=== PATIENT | male | born 1945 | race Caucasian/White ===

== ENCOUNTER 2018-11-20 02:06 | Inpatient (IN) ==
[2018-11-20] MEDS ORDERED: MECLIZINE 25 MG TABLET PO STA (02:09)
[2018-11-20 02:24] LABS: Basophils % 0.7 % (0.0-0.8); Eosinophils # 0.1 10*3/uL (0.0-0.87); Eosinophils % 1.8 % (0.00-10.9); Hematocrit 39.5 VOL% (42.0-52.0); Hemoglobin 12.1 GM/DL (14.0-18.0); Immature Granulocytes % 0.7 %; Immature Granulocytes Absolute 0.04 #; Lymphocytes # 2.3 10*3/uL (1.4-4.0); Lymphocytes % 41.3 % (21.2-54.2); Mean Corpuscular HGB Conc 30.6 GM/DL (32-36); Mean Corpuscular Volume 91.2 FL (87-102); Mean Platelet Volume 9.8 FL (9.6-12.0); Monocytes % 9.8 % (1.7-12.7); Neutrophils % 45.7 % (38.7-73.9); Platelet Count 185 T/CUMM (130-400); Red Blood Count 4.33 MC/CUMM (3.8-5.5); White Blood Count 5.6 T/CUMM (4-12)
[2018-11-20 02:49] LABS: Alanine Aminotransferase 17 U/L (16-61); Albumin 3.7 G/DL (3.4-5.0); Alkaline Phosphatase 97 U/L (45-117); Aspartate Amino Transferase 15 U/L (0-37); Bilirubin,Total < 0.39 MG/DL (0.2-1.0); Blood Urea Nitrogen 18 MG/DL (7-18); Calcium 8.1 MG/DL (8.5-10.1); Glucose 110 MG/DL (74-106); Osmolality,Calculated 285.1 MOS/KG (273-304); Total Protein 6.2 G/DL (6.4-8.3)
[2018-11-20] MEDS ORDERED: SODIUM CHLORIDE 0.9% 1,000 ML IV STA (03:24)
[2018-11-20] MEDS ORDERED: ONDANSETRON 4 MG/2 ML VIAL IV PRN (03:58)
[2018-11-20 06:05] LABS: Troponin I 0.257 NG/ML (0.00-0.045)
[2018-11-20] MEDS: SODIUM CHLORIDE 0.9% 1,000 ML IV SCH ×3 (07:15→15:54)
[2018-11-20 12:46] LABS: Troponin I 0.221 NG/ML (0.00-0.045)
[2018-11-20 20:49] LABS: Troponin I 0.228 NG/ML (0.00-0.045)
[2018-11-20] MEDS: METOPROLOL TARTRATE 50 MG TABLET PO SCH (22:27)
[2018-11-21] MEDS: SODIUM CHLORIDE 0.9% 1,000 ML IV SCH ×2 (00:23→09:17)
[2018-11-21] MEDS ORDERED: predniSONE 5 MG TABLET PO PRN (07:12)
[2018-11-21] MEDS ORDERED: LIDOCAINE 5% PATCH TRANSDERM PRN (07:12)
[2018-11-21] MEDS ORDERED: IPRATROPIUM 500 MCG/2.5 ML NEB RESP TX PRN (07:12)
[2018-11-21] MEDS ORDERED: SILDENAFIL 100 MG PO PRN (07:12)
[2018-11-21] MEDS ORDERED: SUVOREXANT PO PRN (07:12)
[2018-11-21] MEDS ORDERED: NITROGLYCERIN 0.2 MG/HR PATCH TRANSDERM PRN (07:12)
[2018-11-21] MEDS ORDERED: NITROGLYCERIN SL 0.4 MG TABLET SL PRN (07:12)
[2018-11-21] MEDS ORDERED: CYCLOBENZAPRINE 10 MG TABLET PO PRN (07:12)
[2018-11-21] MEDS: POTASSIUM CHLORIDE 10 MEQ TABLET PO SCH (09:14)
[2018-11-21] MEDS: VALSARTAN 80 MG TABLET PO SCH (09:14)
[2018-11-21] MEDS: carBAMazepine 200 MG TABLET PO SCH ×2 (09:14→20:54)
[2018-11-21] MEDS: CILOSTAZOL 50 MG TABLET PO SCH ×2 (09:14→20:48)
[2018-11-21] MEDS: PREGABALIN 75 MG CAPSULE PO SCH (09:15)
[2018-11-21] MEDS: CELECOXIB 100 MG CAPSULE PO SCH ×2 (09:15→20:45)
[2018-11-21] MEDS: EZETIMIBE 10 MG TABLET PO SCH (09:15)
[2018-11-21] MEDS: LEVOTHYROXINE 50 MCG TABLET PO SCH (09:15)
[2018-11-21] MEDS: TAMSULOSIN 0.4 MG CAPSULE PO SCH (09:15)
[2018-11-21] MEDS: METOPROLOL TARTRATE 50 MG TABLET PO SCH ×2 (09:16→20:45)
[2018-11-21] MEDS: amLODIPine 5 MG TABLET PO SCH (09:16)
[2018-11-21] MEDS: PANTOPRAZOLE 40 MG TABLET PO SCH (09:16)
[2018-11-21] MEDS: RANOLAZINE 500 MG TABLET PO SCH ×2 (09:16→20:45)
[2018-11-21] MEDS: ASPIRIN EC 325 MG TABLET PO SCH (09:16)
[2018-11-21] MEDS: ESCITALOPRAM 10 MG TABLET PO SCH (09:16)
[2018-11-21] MEDS ORDERED: ROSUVASTATIN 20 MG TABLET PO SCH (21:00)
[2018-11-22 08:07] VITALS: BP 159/89
[2018-11-22] MEDS: METOPROLOL TARTRATE 50 MG TABLET PO SCH (09:37)
[2018-11-22] MEDS: CELECOXIB 100 MG CAPSULE PO SCH (09:37)
[2018-11-22] MEDS: TAMSULOSIN 0.4 MG CAPSULE PO SCH (09:37)
[2018-11-22] MEDS: LEVOTHYROXINE 50 MCG TABLET PO SCH (09:37)
[2018-11-22] MEDS: PANTOPRAZOLE 40 MG TABLET PO SCH (09:37)
[2018-11-22] MEDS: ASPIRIN EC 325 MG TABLET PO SCH (09:37)
[2018-11-22] MEDS: VALSARTAN 80 MG TABLET PO SCH (09:37)
[2018-11-22] MEDS: ESCITALOPRAM 10 MG TABLET PO SCH (09:37)
[2018-11-22] MEDS: POTASSIUM CHLORIDE 10 MEQ TABLET PO SCH (09:37)
[2018-11-22] MEDS: amLODIPine 5 MG TABLET PO SCH (09:38)
[2018-11-22] MEDS: PREGABALIN 75 MG CAPSULE PO SCH (09:38)
[2018-11-22] MEDS: carBAMazepine 200 MG TABLET PO SCH (09:39)
[2018-11-22] MEDS: CILOSTAZOL 50 MG TABLET PO SCH (09:39)
[2018-11-22] MEDS: EZETIMIBE 10 MG TABLET PO SCH (09:39)
[2018-11-22] MEDS: RANOLAZINE 500 MG TABLET PO SCH (09:39)
== END 2018-11-22 10:10 | disposition home or self-care (01) | DRG 882 ==
LOC: EDUNIT# → EDBD → N.ED 02:06 → N.EDINP 03:58 → N.TELEN 08:56
PROVIDERS: ADMIT Family Medicine; ATTEND Family Medicine